=== PATIENT | male | born 1965 | race Two or more races ===

== ENCOUNTER 2024-06-11 12:09 | Inpatient (IN) | payer OTHER ==
[~2024-06-11] VITALS: Ht 190.5 cm; Wt 99.8 kg
[2024-06-11] MEDS ORDERED: WIXELA 250-501 EACH IH (12:45)
[2024-06-11] MEDS ORDERED: PROAIR RESPICL90 MCG (12:46)
[2024-06-11] MEDS ORDERED: 0.9 % SODIUM CHLORIDE 1,000 ML IV STA (13:31)
[2024-06-11 13:54] LABS: HEMATOCRIT 43.9 % (39.0-48.0); HEMOGLOBIN 15.2 g/dL (13-16.00); MEAN CELL VOLUME 88.6 fL (80.0-100.00); MEAN CORPUSCULAR HEMOGLOBIN 30.6 pg (27.00-32.0); MEAN CORPUSCULAR HGB CONC 34.6 g/dl (32.0-36.0); PLATELET COUNT 277 K/uL (150-450); RED BLOOD COUNT 4.96 M/uL (4.00-6.00); RED CELL DISTRIBUTION WIDTH 14.4 % (11.5-14.5)
[2024-06-11 14:18] LABS: ALBUMIN 3.4 gm/dL (3.4-5.0); BILIRUBIN,CONJUGATED 6.3 mg/dL (0.0-0.2); BILIRUBIN,UNCONJUGATED 2.02 mg/dL (0.0-0.6); CALCIUM 9.9 mg/dL (8.5-10.1); CREATININE SERUM 0.94 mg/dL (0.70-1.30); GFR 81.86; GLOBULINA 4.1 G/DL (2.4-3.5); POTASSIUM 3.73 mEq/L (3.5-5.1); TOTAL PROTEIN 7.5 gm/dL (6.4-8.2)
[2024-06-11 14:21] LABS: BILIRUBIN TOTAL 8.32 mg/dL (0.3-1.2)
[2024-06-11 15:21] LABS: URINE APPEARANCE Clear; URINE BILIRRUBIN Large (NEGATIVE); URINE BLOOD Negative; URINE COLOR Dark Yellow; URINE GLUCOSE Negative (NEGATIVE); URINE KETONE Trace (NEGATIVE); URINE LEUKOCYTE Small; URINE NITRATE Positive; URINE PROTEIN Trace (NEGATIVE)
[2024-06-11 15:25] LABS: URINE BACTERIA 460.2 uL (0.0-1933); URINE EPITHELIAL CELLS 27.3 uL (0.0-38.8); URINE RBC 12.5 uL (0.0-20.8); URINE WBC 6.6 uL (0.0-23.2)
[2024-06-11 15:39] LABS: URINE CAST 0.88 uL (0.0-1.40)
[2024-06-11] MEDS ORDERED: 0.9 % SODIUM CHLORIDE 1,000 ML IV SCH (19:30)
[2024-06-11] MEDS ORDERED: ONDANSETRON HCL 4 MG in 0.9 % SODIUM CHLORIDE 50 ML IV PRN (19:45)
[2024-06-11] MEDS ORDERED: ACETAMINOPHEN 500 MG GEL..CAP PO PRN (19:45)
[2024-06-11 20:50] VITALS: BP 133/78; O2SAT 98
[2024-06-11 20:58] LABS: INR 0.98; PARTIAL THROMBOPLASTIN TIME 25.4 SECONDS (22.0-34.0); PROTHROMBIN TIME 10.7 SECONDS (9.0-11.5)
[2024-06-12 01:48] VITALS: BP 118/63
[2024-06-12 08:32] VITALS: BP 127/81
[2024-06-12] MEDS ORDERED: FAMOTIDINE/PF 20 MG in 0.9 % SODIUM CHLORIDE 8 ML IV PUSH SCH (09:00)
[2024-06-12] MEDS ORDERED: SUGAMMADEX SODIUM 200 MG/2 ML VIAL IV ONE (19:11)
[2024-06-12 21:51] VITALS: BP 140/77
[2024-06-13 02:21] VITALS: BP 110/50; O2SAT 96
[2024-06-13 08:59] VITALS: BP 135/74
[2024-06-13 17:53] VITALS: BP 134/76; O2SAT 98
[2024-06-14 01:24] VITALS: BP 152/78; O2SAT 98
[2024-06-14 09:37] VITALS: BP 135/78
[2024-06-14 17:32] VITALS: BP 150/80; O2SAT 98
[2024-06-14] MEDS ORDERED: PIPERACILLIN/TAZOBACTAM SODIUM 3.375 GM VIAL IV SCH (18:00)
[2024-06-15 00:33] VITALS: BP 142/83; O2SAT 97
[2024-06-15 08:53] VITALS: BP 140/77
[2024-06-15] MEDS ORDERED: GLUCAGON 1 MG VIAL IJ ONE (16:00)
[2024-06-15] MEDS ORDERED: FAMOtidine 20 MG TABLET PO SCH (21:00)
[2024-06-15] MEDS ORDERED: ZOLPIDEM TARTRATE 10 MG TABLET PO SCH (21:30)
[2024-06-15 22:11] VITALS: O2SAT 98
[2024-06-16 01:15] VITALS: BP 102/54
[2024-06-16 08:06] VITALS: BP 109/69
[2024-06-16 09:03] LABS: HEMATOCRIT 38.3 % (39.0-48.0); HEMOGLOBIN 12.9 g/dL (13-16.00); MEAN CELL VOLUME 90.3 fL (80.0-100.00); MEAN CORPUSCULAR HEMOGLOBIN 30.3 pg (27.00-32.0); MEAN CORPUSCULAR HGB CONC 33.5 g/dl (32.0-36.0); PLATELET COUNT 187 K/uL (150-450); RED BLOOD COUNT 4.24 M/uL (4.00-6.00); RED CELL DISTRIBUTION WIDTH 14.8 % (11.5-14.5)
[2024-06-16 09:44] LABS: BILIRUBIN TOTAL 4.7 mg/dL (0.3-1.2); CALCIUM 7.6 mg/dL (8.5-10.1); CREATININE SERUM 0.66 mg/dL (0.70-1.30); GFR 123.12; POTASSIUM 3.43 mEq/L (3.5-5.1)
== END 2024-06-16 10:45 | disposition home or self-care (01) | DRG 445 ==
LOC: ER 12:11 → MEDJ 20:20
PROVIDERS: Emergency Medicine; General Practice; Internal Medicine; ADMIT Internal Medicine; ATTEND Internal Medicine
PROC: BW40ZZZ Ultrasonography of Abdomen (ICD-10-PCS; 2024-06-11)
PROC: BW21YZZ Computerized Tomography (CT Scan) of Abdomen and Pelvis using Other Contrast (ICD-10-PCS; 2024-06-11)
PROC: BF4CZZZ Ultrasonography of Hepatobiliary System, All (ICD-10-PCS; 2024-06-12)
PROC: 07D Lymphatic and Hemic Systems, Extraction (ICD-10-PCS; 2024-06-12)
PROC: 0F778ZZ Dilation of Common Hepatic Duct, Via Natural or Artificial Opening Endoscopic (ICD-10-PCS; 2024-06-12)
PROC: 0FBG8ZX Excision of Pancreas, Via Natural or Artificial Opening Endoscopic, Diagnostic (ICD-10-PCS; 2024-06-12)
PROC: XFJB8A7 Inspection of Hepatobiliary Duct using Single-use Duodenoscope, New Technology Group 7 (ICD-10-PCS; principal; 2024-06-12 16:00)
PROC: BF37ZZZ Magnetic Resonance Imaging (MRI) of Pancreas (ICD-10-PCS; 2024-06-13)
PROC: 0F778DZ Dilation of Common Hepatic Duct with Intraluminal Device, Via Natural or Artificial Opening Endoscopic (ICD-10-PCS; 2024-06-15)
DX: K83.1 Obstruction of bile duct (principal); C25.7 Malignant neoplasm of other parts of pancreas; E78.5 Hyperlipidemia, unspecified; J44.9 Chronic obstructive pulmonary disease, unspecified
CPT/HCPCS: 74182

== ENCOUNTER 2024-07-15 11:31 | Inpatient (IN) | payer OTHER ==
[~2024-07-15] VITALS: Ht 190.5 cm; Wt 93.4 kg
[~2024-07-15 11:31] MED LIST: PROAIR RESPICL90 MCG; WIXELA 250-501 EACH IH
[2024-07-15] MEDS ORDERED: [UNRECOGNIZED DRUG - OTHER] (12:37)
[2024-07-15] MEDS ORDERED: CAMPTOSAR40 MG/2 ML (12:37)
[2024-07-15] MEDS ORDERED: LEUCOVORIN CAL (12:37)
[2024-07-15] MEDS ORDERED: ATROPINE SULFATE (12:38)
[2024-07-15] MEDS ORDERED: FLUOROURACIL30 GM (12:38)
[2024-07-15] MEDS ORDERED: PEPCID AC10 MG (12:39)
[2024-07-15] MEDS ORDERED: BENADRYL25 MG (12:39)
[2024-07-15] MEDS ORDERED: EMEND150 MG (12:39)
[2024-07-15] MEDS ORDERED: GLUMETZA500 MG PO (12:45)
[2024-07-15] MEDS ORDERED: ZOFRAN8 MG PO (12:46)
[2024-07-15] MEDS ORDERED: 0.9 % SODIUM CHLORIDE 1,000 ML IV SCH (13:15)
[2024-07-15] MEDS ORDERED: PIPERACILLIN/TAZOBACTAM SODIUM 3.375 GM in 0.9 % SODIUM CHLORIDE 100 ML IV SCH (13:22)
[2024-07-15 14:00] LABS: HEMATOCRIT 39.2 % (39.0-48.0); HEMOGLOBIN 13.7 g/dL (13-16.00); MEAN CELL VOLUME 89.2 fL (80.0-100.00); MEAN CORPUSCULAR HEMOGLOBIN 31.2 pg (27.00-32.0); PLATELET COUNT 205 K/uL (150-450); RED BLOOD COUNT 4.39 M/uL (4.00-6.00); RED CELL DISTRIBUTION WIDTH 13.2 % (11.5-14.5)
[2024-07-15 15:15] LABS: INR 1.13; PARTIAL THROMBOPLASTIN TIME 23.4 SECONDS (22.0-34.0); PROTHROMBIN TIME 12.2 SECONDS (9.0-11.5)
[2024-07-15 15:20] LABS: ALBUMIN 2.4 gm/dL (3.4-5.0); BILIRUBIN TOTAL 7.27 mg/dL (0.3-1.2); BILIRUBIN,CONJUGATED 6.35 mg/dL (0.0-0.2); BILIRUBIN,UNCONJUGATED 0.92 mg/dL (0.0-0.6); CALCIUM 9.1 mg/dL (8.5-10.1); GFR 76.22; GLOBULINA 4.8 G/DL (2.4-3.5); POTASSIUM 3.97 mEq/L (3.5-5.1); TOTAL PROTEIN 7.2 gm/dL (6.4-8.2)
[2024-07-15] MEDS ORDERED: ONDANSETRON HCL 4 MG in 0.9 % SODIUM CHLORIDE 50 ML IV PRN (16:00)
[2024-07-15] MEDS ORDERED: PANTOPRAZOLE SODIUM 40 MG/VIAL VIAL IV SCH (16:00)
[2024-07-15] MEDS ORDERED: INSULIN LISPRO 1,000 UNIT/10 ML UNITS SUBCUTANEO PRN (16:00)
[2024-07-15] MEDS ORDERED: DEXTROSE 50 % IN WATER 0.5 G/ML DISP.SYRIN IV PRN (16:00)
[2024-07-15 21:13] LABS: PH,URINE 5.5 (5.0-8.0); URINE APPEARANCE Clear; URINE BILIRRUBIN Small (NEGATIVE); URINE BLOOD Negative; URINE COLOR Dark Yellow; URINE KETONE Negative (NEGATIVE); URINE LEUKOCYTE Negative; URINE NITRATE Negative; URINE PROTEIN Negative (NEGATIVE); URINE UROBILINOGEN 0.2 E.U./dl
[2024-07-15 21:19] LABS: URINE BACTERIA 4.8 uL (0.0-1933); URINE EPITHELIAL CELLS 4.9 uL (0.0-38.8); URINE RBC 15.9 uL (0.0-20.8); URINE WBC 2.3 uL (0.0-23.2)
[2024-07-15 21:52] LABS: URINE GLUCOSE 250 MG/DL (NEGATIVE)
[2024-07-16 08:08] VITALS: BP 121/76; O2SAT 98
[2024-07-16 13:23] VITALS: BP 110/70; O2SAT 96
[2024-07-16 16:00] VITALS: BP 128/68; O2SAT 94
[2024-07-17] VITALS: BP 129/72; O2SAT 96
[2024-07-17 09:24] VITALS: BP 92/63; O2SAT 90
[2024-07-17] MEDS ORDERED: IOVERSOL 320 MG/ML - 50 ML VIAL IV SCH (13:45)
[2024-07-17] MEDS ORDERED: GLUCAGON 1 MG VIAL IV ONE (13:45)
== END 2024-07-17 14:33 | disposition home or self-care (01) | DRG 919 ==
LOC: ER 11:34 → SEC-K 16:19 → SURH 16:19
PROVIDERS: General Practice; Internal Medicine; ADMIT Internal Medicine; ATTEND Internal Medicine
PROC: 0F798DZ Dilation of Common Bile Duct with Intraluminal Device, Via Natural or Artificial Opening Endoscopic (ICD-10-PCS; 2024-07-16)
PROC: BF10YZZ Fluoroscopy of Bile Ducts using Other Contrast (ICD-10-PCS; 2024-07-16)
PROC: 0FPB8DZ Removal of Intraluminal Device from Hepatobiliary Duct, Via Natural or Artificial Opening Endoscopic (ICD-10-PCS; principal; 2024-07-16 10:30)
DX: T85.590A Other mechanical complication of bile duct prosthesis, initial encounter (principal); K83.1 Obstruction of bile duct; C78.89 Secondary malignant neoplasm of other digestive organs; E80.6 Other disorders of bilirubin metabolism; E11.65 Type 2 diabetes mellitus with hyperglycemia; Z79.4 Long term (current) use of insulin; Y82.8 Other medical devices associated with adverse incidents

== ENCOUNTER 2024-08-10 11:38 | Outpatient (CLI) | payer OTHER ==
[~2024-08-10 11:38] MED LIST changes: +ATROPINE SULFATE; +BENADRYL25 MG; +CAMPTOSAR40 MG/2 ML; +EMEND150 MG; +FLUOROURACIL30 GM; +GLUMETZA500 MG PO; +LEUCOVORIN CAL; +PEPCID AC10 MG; +ZOFRAN8 MG PO; +[UNRECOGNIZED DRUG - OTHER]
== END 2024-08-10 14:20 | disposition home or self-care (01) ==
LOC: MRI 11:38
PROVIDERS: ATTEND Internal Medicine
DX: C25.9 Malignant neoplasm of pancreas, unspecified (principal)
CPT/HCPCS: 74181; 74183

== ENCOUNTER 2024-09-04 05:45 | Day surgery (SDC) | payer OTHER ==
[2024-08-31 13:54] VITALS: BP 105/74
[2024-08-31 14:29] LABS: PARTIAL THROMBOPLASTIN TIME 25.2 SECONDS (22.0-34.0); PROTHROMBIN TIME 10.9 SECONDS (9.0-11.5)
[~2024-09-04] VITALS: Ht 182.9 cm; Wt 97.5 kg
[2024-09-04] MEDS ORDERED: PIPERACILLIN/TAZOBACTAM SODIUM 3.375 GM VIAL IV ONE (06:31)
[2024-09-04] MEDS ORDERED: GLUCAGON 1 MG VIAL ONE (08:05)
[2024-09-04] MEDS ORDERED: IOVERSOL 320 MG/ML - 50 ML VIAL IV ONE (08:06)
== END 2024-09-04 13:30 | disposition home or self-care (01) ==
LOC: U 05:45 → CIR.AMB 05:45
PROVIDERS: ATTEND Internal Medicine
DX: C25.0 Malignant neoplasm of head of pancreas (principal); C78.7 Secondary malignant neoplasm of liver and intrahepatic bile duct; T85.590A Other mechanical complication of bile duct prosthesis, initial encounter

== ENCOUNTER 2024-11-30 06:20 | Day surgery (SDC) | payer OTHER ==
[2024-11-23 14:17] VITALS: BP 145/85
[2024-11-23 14:35] LABS: INR 0.98
[~2024-11-30] VITALS: Ht 188 cm; Wt 97.5 kg
[~2024-11-30 06:20] MED LIST changes: +ZYRTEC10 M3 PO
[2024-11-30] MEDS ORDERED: PIPERACILLIN/TAZOBACTAM SODIUM 3.375 GM VIAL IV ONE (08:04)
[2024-11-30] MEDS ORDERED: GLUCAGON 1 MG VIAL ONE (10:52)
[2024-11-30] MEDS ORDERED: SUGAMMADEX SODIUM 200 MG/2 ML VIAL IV ONE (12:31)
== END 2024-11-30 15:10 | disposition home or self-care (01) ==
LOC: CIR.AMB 06:20
PROVIDERS: ATTEND Internal Medicine
DX: C25.0 Malignant neoplasm of head of pancreas (principal); C78.7 Secondary malignant neoplasm of liver and intrahepatic bile duct; T85.590A Other mechanical complication of bile duct prosthesis, initial encounter; K83.1 Obstruction of bile duct; K83.8 Other specified diseases of biliary tract
CPT/HCPCS: 43276; C1748

== ENCOUNTER 2025-03-18 06:00 | Day surgery (SDC) | payer OTHER ==
[2025-03-15 12:46] VITALS: BP 126/89
[2025-03-15 15:04] LABS: INR 0.98
[~2025-03-18] VITALS: Ht 190.5 cm; Wt 99.8 kg
[~2025-03-18 06:00] MED LIST changes: +LYRICA100 MG PO
[2025-03-18] MEDS ORDERED: GLUCAGON 1 MG VIAL ONE (16:14)
[2025-03-18] MEDS ORDERED: IOVERSOL 320 MG/ML - 50 ML VIAL IV ONE (18:10)
[2025-03-18] MEDS ORDERED: PIPERACILLIN/TAZOBACTAM SODIUM 3.375 GM VIAL IV ONE ×2 (19:15→19:47)
== END 2025-03-18 21:50 | disposition home or self-care (01) ==
LOC: CIR.AMB 06:00
PROVIDERS: ATTEND Internal Medicine
DX: C25.0 Malignant neoplasm of head of pancreas (principal); C78.7 Secondary malignant neoplasm of liver and intrahepatic bile duct; K83.1 Obstruction of bile duct; Z91.040 Latex allergy status; Z88.8 Allergy status to other drugs, medicaments and biological substances
CPT/HCPCS: 43276; 43277; C1748

== ENCOUNTER 2025-05-02 17:18 | Inpatient (IN) | payer OTHER ==
[~2025-05-02] VITALS: Ht 188 cm; Wt 104.3 kg
--- NOTE | 2025-05-02 19:21 | NUR ---
PTE ALERTA Y ORIENTADO X3 ACOMPANADO POR ESPOSO Y ESTOS REFIEREN VENIR CON REFERIDO TRNA. PHILIP ARACELY KERR PARA HOSPITALIZACION POR OBSTRUCCION EN EL STENT EN EL DUCTO BILIAR.
--- NOTE | 2025-05-02 21:35 | NUR ---
SE EDUCA SOBRE [place] MEDICO, MAYANK REFIERE ENTENDER. SE EXTRAEN MUESTRAS DE LABORATORIO BENJA ORDEN MEDICA. SE NOTIFICA XRAY.
[2025-05-02 21:38] LABS: BASO % 0.3 % (0.1-1.2); EOS # 0.18 (0.04-0.54); EOS % 6.1 % (0.7-7.0); LYMPH # 0.76 (1.18-3.74); MEAN PLATELET VOLUME 11.40 fl (9.4-12.4); MONO # 0.42 (0.24-0.82); NEUT # 1.54 (1.56-6.13); NEUT % 52.7 % (34.0-71.1); RED CELL DISTRIBUTION WIDTH 15.9 % (11.6-14.4)
[2025-05-02 21:43] LABS: LYMPH % 25.9 % (19.3-53.1); MONO % 14.3 % (4.7-12.5)
[2025-05-02] MEDS ORDERED: PIPERACILLIN/TAZOBACTAM SODIUM 3.375 GM VIAL IV ONE (22:30)
[2025-05-02 23:35] LABS: INR 1.05
[2025-05-02 23:52] LABS: ALT/SGPT 227.0 U/L (12-78); AST/SGOT 132.0 U/L (15-37); BILIRUBIN TOTAL 6.98 mg/dL (0.3-1.2); BUN CREA RATIO 17.0 (7.0-25.0); CREATININE SERUM 0.82 mg/dL (0.70-1.30); GFR 95.51; GLOBULINA 4.9 G/DL (2.4-3.5); GLUCOSE FASTING 146.0 mg/dL (65-100); OSMOLALITY SERUM 288.0 MOSM/KG (275-295)
[2025-05-03] MEDS ORDERED: PIPERACILLIN/TAZOBACTAM SODIUM 3.375 GM in 0.9 % SODIUM CHLORIDE 100 ML IV SCH
[2025-05-03] MEDS ORDERED: PIPERACILLIN/TAZOBACTAM SODIUM 3.375 GM VIAL IV ONE ×2 (00:48→18:53)
[2025-05-03 06:51] LABS: BASO % 0.0 % (0.1-1.2); EOS # 0.15 (0.04-0.54); EOS % 6.6 % (0.7-7.0); LYMPH # 0.66 (1.18-3.74); LYMPH % 29.1 % (19.3-53.1); MEAN PLATELET VOLUME 12.20 fl (9.4-12.4); MONO # 0.36 (0.24-0.82); NEUT # 1.09 (1.56-6.13); NEUT % 48.0 % (34.0-71.1); RED CELL DISTRIBUTION WIDTH 15.9 % (11.6-14.4)
[2025-05-03 06:56] LABS: MONO % 15.9 % (4.7-12.5)
[2025-05-03 07:15] LABS: BUN CREA RATIO 19.0 (7.0-25.0); CREATININE SERUM 0.68 mg/dL (0.70-1.30); GFR 118.55; GLUCOSE FASTING 124.0 mg/dL (65-100); OSMOLALITY SERUM 281.0 MOSM/KG (275-295)
[2025-05-03 07:33] LABS: INR 1.02
[2025-05-03] MEDS ORDERED: FAMOTIDINE/PF 20 MG in 0.9 % SODIUM CHLORIDE 100 ML IV SCH (09:00)
[2025-05-03] MEDS ORDERED: POTASSIUM CHLORIDE 20MEQ/100ML H2O PB IV STA (11:56)
[2025-05-03 13:53] LABS: COL ADP 50 SECONDS (56-102); COL EPI 186 SECONDS (82-175)
[2025-05-03] MEDS ORDERED: GLUCAGON 1 MG VIAL ONE (14:21)
[2025-05-03] MEDS ORDERED: IOVERSOL 320 MG/ML - 50 ML VIAL IV ONE (14:22)
[2025-05-03] MEDS ORDERED: SUGAMMADEX SODIUM 200 MG/2 ML VIAL IV ONE ×2 (15:54)
[2025-05-03 20:44] VITALS: BP 154/86; O2SAT 100
== END 2025-05-03 20:40 | disposition home or self-care (01) | DRG 446 ==
LOC: ER 17:19 → SEC-K 22:38 → O/R 22:38 → SURH 22:38 → SEC-K 05-03 02:24 → O/R 05-03 07:35
PROVIDERS: Anesthesiology Pain Medicine; Internal Medicine; Preventive Medicine Public Health & General Preventive Medicine; ADMIT Internal Medicine; ATTEND Internal Medicine
PROC: 0F7D8DZ Dilation of Pancreatic Duct with Intraluminal Device, Via Natural or Artificial Opening Endoscopic (ICD-10-PCS; 2025-05-03)
PROC: 0FPD8DZ Removal of Intraluminal Device from Pancreatic Duct, Via Natural or Artificial Opening Endoscopic (ICD-10-PCS; principal; 2025-05-03 09:00)
DX: K83.1 Obstruction of bile duct (principal); Z46.59 Encounter for fitting and adjustment of other gastrointestinal appliance and device; C80.1 Malignant (primary) neoplasm, unspecified